=== PATIENT | female | born 1975 | race Caucasian/White ===

== ENCOUNTER 2018-09-18 01:46 | Emergency (ER) | payer SELFPAY ==
[~2018-09-18] VITALS: Ht 167.6 cm; Wt 99.8 kg
[2018-09-18 01:53] VITALS: BP 134/90
--- NOTE | 2018-09-18 01:53 | NUR ---
TO BED # 08 AMBULATORY
[2018-09-18 02:00] VITALS: BP 134/90
--- NOTE | 2018-09-18 02:00 | NUR ---
42 Y/O F BIB SELF WITH C/O L KNEE PAIN X3 DAYS AND VAGINAL DISCHARGE X2 MONTHS. 6/10 PAIN TO L KNEE, ACHING. L KNEE NON-TENDER. BLE EDEMATOUS. +CMS. PT C/O FOUL SMELLING VAGINAL YELLOW DISCHARGE X2 MONTHS. PER PT ONLY HAS ONE SEXUAL PARTNER AND DOES NOT USE PROTECTION. ERMD NOTIFIED. WILL CONTINUE TO MONITOR. Addendum: 09/18/18 at 0309 by [facility] 42 Y/O F BIB SELF WITH C/O L KNEE PAIN X3 DAYS AND VAGINAL DISCHARGE X2 MONTHS. 6/10 PAIN TO L KNEE, ACHING. L KNEE NON-TENDER. BLE EDEMATOUS. +CMS. PT C/O FOUL SMELLING VAGINAL YELLOW DISCHARGE AND ITCHING X2 MONTHS DENIES DYSURIA OR HEMATURIA. PER PT ONLY HAS ONE SEXUAL PARTNER AND DOES NOT USE PROTECTION. ERMD NOTIFIED. WILL CONTINUE TO MONITOR.
[2018-09-18] MEDS ORDERED: IBUPROFEN 800 MG TAB PO ONE (02:05)
[2018-09-18 02:28] LABS: APPEARANCE,URINE SL CLOUDY (CLEAR); BILIRUBIN,URINE NEGATIVE (NEGATIVE); BLOOD, URINE NEGATIVE (NEGATIVE); COLOR,URINE YELLOW (YELLOW); LEUKOCYTE ESTERASE ,URINE 1+ (NEGATIVE); NITRITE, URINE POSITIVE (NEGATIVE); UGLUCOSE NEGATIVE (NEGATIVE)
--- NOTE | 2018-09-18 02:35 | NUR ---
X-RAY AT BEDSIDE.
[2018-09-18 02:40] LABS: RBC,URINE 0-5 /HPF (0-5)
[2018-09-18] MEDS ORDERED: cefTRIAXone 1,000 MG in LIDOCAINE MPF 1% - 5 mL VIAL 2.1 ML IM ONE (02:45)
[2018-09-18] MEDS ORDERED: metroNIDAZOLE 250 MG TAB PO ONE (02:45)
--- NOTE | 2018-09-18 03:45 | NUR ---
Patient discharged with v/s stable. Written and verbal after care instructions given and explained. Patient alert, oriented and verbalized understanding of instructions. Wheel Chair Assisted by EMT. All questions addressed prior to discharge. ID band removed. Patient advised to follow up with PMD. Rx of Flagyl, macrobid,and ibuprofen given. Patient educated on indication of medication including possible reaction and side effects. Opportunity to ask questions provided and answered.
[2018-09-21 06:16] LABS: CHLAMYDIA TRACHOMATIS AMP DNA Negative (Negative)
--- NOTE | 2018-09-21 12:05 | NUR ---
as per appropriate treatment given---pt given rocephin 1gm im for gonorrhea , macrobid rx for uti but also positive e-coli urine-- pt was contacted and she stated due to lack of funds was not able to but macrobid---informed to return to apply for medical or other treatment---f/u with pmd within this week
== END 2018-09-18 03:45 | disposition home or self-care (01) ==
LOC: MED 01:46
DX: M25.562 Pain in left knee (principal); N39.0 Urinary tract infection, site not specified; N76.0 Acute vaginitis; Z60.2 Problems related to living alone; X50.1XXA Overexertion from prolonged static or awkward postures, initial encounter; Y93.01 Activity, walking, marching and hiking; Y92.89 Other specified places as the place of occurrence of the external cause; Y99.8 Other external cause status
CPT/HCPCS: 36415; 73562; 81001; 87086; 87186; 87210; 87491; 93971; 96372; 99284; J0696; J2001; Q0092; 81002

== ENCOUNTER 2020-02-09 20:03 | Inpatient (IN) | payer SELFPAY ==
[~2020-02-09] VITALS: Ht 167.6 cm; Wt 89.8 kg
[2020-02-09 20:40] VITALS: BP 122/55
--- NOTE | 2020-02-09 20:43 | NUR ---
TO LOBBY A/W BED WITH CRUTCHES
--- NOTE | 2020-02-09 22:05 | NUR ---
44 Y/O FEMALE PRESENTED TO ED C/O "SPIDER BITE" INFECTION ON LEFT LEG X 1 DAY. OBSERVED REDNESS AND SWELLING ON LEFT LEG. PT STATES SHE HAS NOT BEEN TAKING ANY MEDICATION AT THIS TIME. PT SENSITIVE TO TOUCH ON LEFT EXTREMITY. PT DENIES FEVER, CHILLS AND BODY ACHES, N/V/D. PT A/O X 4. CAP REFIL <3 SEC. RR EVEN AND UNLABORED. PT RESTING IN BED, LOCKED AND IN LOWEST POSITION ,HOB ELEVATED, SIDE RAIL X1. ERMD MADE AWARE OF PT STATUS. PMH: DENIES NKA
--- NOTE | 2020-02-09 22:10 | NUR ---
PT TAKEN TO BED #12 VIA W/C
--- NOTE | 2020-02-09 22:20 | NUR ---
ULTRASOUND AT BEDSIDE.
--- NOTE | 2020-02-09 22:21 | NUR ---
LAB AT BEDSIDE.
--- NOTE | 2020-02-09 22:22 | NUR ---
PER DIEGO, SAP BI DEVELOPER UNABLE TO OBTAIN BLOOD LABS AT THIS TIME DUE TO ULTRASOUND AT BEDSIDE.
[2020-02-09 22:45] LABS: BASOPHILS # (AUTO) 0.1 K/uL (0.00-0.22); BASOPHILS % (AUTO) 0.3 % (0.0-2.0); EOSINOPHILS % (AUTO) 0.2 % (0.0-4.0); HEMATOCRIT 37.8 % (36-48); HEMOGLOBIN 12.3 g/dL (12.0-16.0); LYMPHOCYTES # (AUTO) 1.9 K/uL (2.5-16.5); LYMPHOCYTES % (AUTO) 9.9 % (20.5-51.1); MEAN CORPUSCULAR HEMOGLOBIN 28 pg (27-31); MEAN CORPUSCULAR HGB CONC 33 g/dL (33-37); MEAN CORPUSCULAR VOLUME 86.9 fL (80-94); MONOCYTES % (AUTO) 10.5 % (1.7-9.3); NEUTROPHILS # (AUTO) 15.1 K/uL (1.8-7.7); NEUTROPHILS % (AUTO) 79.1 % (42.2-75.2); PLATELET COUNT (AUTO) 242 K/uL (140-450); RED BLOOD CELL COUNT(AUTO) 4.34 MIL/uL (4.20-5.40); RED CELL DISTRIBUTION WIDTH 14.4 % (11.6-13.7)
[2020-02-09 22:58] LABS: PROTHROMBIN TIME 30.2 secs (10.8-13.4)
[2020-02-09 23:03] LABS: ALBUMIN 2.7 g/dL (3.4-5.0); ANION GAP 35.3 (8-16); CARBON DIOXIDE 22.3 mmol/L (21-32); CREATININE 0.7 mg/dL (0.6-1.3); POTASSIUM 3.6 mmol/L (3.5-5.1); TOTAL BILIRUBIN 0.7 mg/dL (0.0-1.0)
[2020-02-09] MEDS ORDERED: NACL 0.9% 1,000 ML IV ONE (23:30)
[2020-02-09] MEDS ORDERED: VANCOMYCIN 1,000 MG in DEXTROSE 5% 250 ML IV ONE (23:30)
--- NOTE | 2020-02-09 23:32 | NUR ---
radiology at bedside.
[2020-02-09] MEDS ORDERED: KETOROLAC 30 MG/ML VIAL IVP ONE (23:35)
[2020-02-09] MEDS ORDERED: VANCOMYCIN 1,000 MG VIAL ONE (23:39)
[2020-02-10] MEDS ORDERED: CLINDAMYCIN 900 MG in DEXTROSE 5% 100 ML IV ONE ×2
--- NOTE | 2020-02-10 | NUR ---
PO CHALLENGED ADMINISTERED - PT TOLERATED WATER WELL AT THIS TIME. TRACYD MADE AWARE.
--- NOTE | 2020-02-10 00:40 | NUR ---
PT TAKEN TO RESTROOM VIA W/C AT THIS TIME.
--- NOTE | 2020-02-10 01:10 | NUR ---
ABHI COLLECTED AND WALKED TO LAB.
[2020-02-10] MEDS ORDERED: CLINDAMYCIN 900 MG/6 ML VIAL IV ONE (02:03)
--- NOTE | 2020-02-10 02:24 | NUR ---
PT SLEEPING IN BED, LOCKED AND IN LOWEST POSITION ,HOB ELEVATED, SIDE RAIL X2 FOR PT SAFETY. AUDIBLE SNORING HEARD AT THIS TIME. VISIBLE RISE AND FALL OF CHEST. RR EVEN AND UNLABORED. VSS.
--- NOTE | 2020-02-10 04:00 | NUR ---
PT SLEEPING IN BED, LOCKED AND IN LOWEST POSITION ,HOB ELEVATED, SIDE RAIL X2 FOR PT SAFETY. RR EVEN AND UNLABORED , VISIBLE RISE AND FALL OF CHEST. VSS. NO ACUTE DISTRESS NOTED.
--- NOTE | 2020-02-10 04:48 | NUR ---
PT STARTED YELLING THAT SHE IS READY TO GO HOME AND DOES NOT WANT TO BE HERE ANYMORE. PT ENCOURAGED THAT SHE SHOULD STAY AT THIS TIME.
--- NOTE | 2020-02-10 05:00 | NUR ---
PT STATES SHE DOESN'T WANT TO BE HERE ANYMORE AND THAT SHE HAS NO PROBLEM RIGHT NOT. Pt was educated on her infection and encourage to stay. Pt states she does not care and does not want to stay in the hospital at all. Admitting Dr. Stearns was made aware of pt requesting to leave at this time. Per Dr. Stearns discharge pt since he has not seen her at this time. Per PT Patient does not wish to proceed with medical care recommended by Dr. Stearns . Patient given information related to possible complications, up to and including , which could occur as a result of leaving hospital at this time. Patient verbalizes understanding of risks involved leaving against medical advice. Patient has signed AMA form.
--- NOTE | 2020-02-10 05:01 | NUR ---
IV removed, catheter intact and site benign. Applied folded 4x4 gauze and tape to stop bleeding.
[2020-02-10 05:05] VITALS: BP 121/67
--- NOTE | 2020-02-10 05:05 | NUR ---
PT EDUCATED AGAIN ON CONDITION AND ENCOURAGED TO STAY AT THIS TIME. PT STATES SHE DOES NOT WANT TO BE HERE ANYMORE . PT VOLUNTARILY SIGNED AMA FORM AT THIS TIME.
--- NOTE | 2020-02-10 11:14 | NUR ---
SOCIAL WORK NOTE: SW ATTEMPTED TO COMPLETE ASSESSMENT WITH PATIENT. PATIENT LEFT AMA.
== END 2020-02-10 05:00 | disposition left against medical advice (07) | DRG 871 ==
LOC: MED 20:03 → MMU 02-10 00:14
PROVIDERS: ADMIT Family Medicine; ATTEND Family Medicine
DX: A41.9 Sepsis, unspecified organism (principal); E43 Unspecified severe protein-calorie malnutrition; L03.116 Cellulitis of left lower limb; E87.0 Hyperosmolality and hypernatremia; Z20.828 Contact with and (suspected) exposure to other viral communicable diseases; Z53.29 Procedure and treatment not carried out because of patient's decision for other reasons; W57.XXXA Bitten or stung by nonvenomous insect and other nonvenomous arthropods, initial encounter; Y93.89 Activity, other specified; Y92.89 Other specified places as the place of occurrence of the external cause; Y99.8 Other external cause status; Z68.32 Body mass index [BMI] 32.0-32.9, adult
CPT/HCPCS: 36415; 73590; 73630; 80053; 85025; 85610; 93005; 93971; 96365; 96366; 96367; 96375; 99285; J1885; J3370; J3490

== ENCOUNTER 2021-08-27 23:07 | Emergency (ER) | payer SELFPAY ==
[~2021-08-27] VITALS: Ht 160 cm; Wt 75.3 kg
[2021-08-27 23:17] VITALS: BP 142/91
[2021-08-28 00:03] LABS: BASOPHILS % (AUTO) 0.3 % (0.0-2.0); EOSINOPHILS # (AUTO) 0.1 K/uL (0-0.4); EOSINOPHILS % (AUTO) 1.2 % (0.0-4.0); HEMATOCRIT 29.3 % (36-48); HEMOGLOBIN 9.8 g/dL (12.0-16.0); LYMPHOCYTES # (AUTO) 2.3 K/uL (2.5-16.5); LYMPHOCYTES % (AUTO) 23.8 % (20.5-51.1); MEAN CORPUSCULAR HEMOGLOBIN 27 pg (27-31); MEAN CORPUSCULAR HGB CONC 33 g/dL (33-37); MEAN CORPUSCULAR VOLUME 79.7 fL (80-94); MONOCYTES # (AUTO) 0.9 K/uL (0.8-1.0); MONOCYTES % (AUTO) 9.5 % (1.7-9.3); NEUTROPHILS # (AUTO) 6.4 K/uL (1.8-7.7); NEUTROPHILS % (AUTO) 65.2 % (42.2-75.2); PLATELET COUNT (AUTO) 556 K/uL (140-450); RED BLOOD CELL COUNT(AUTO) 3.68 MIL/uL (4.20-5.40); RED CELL DISTRIBUTION WIDTH 16.1 % (11.6-13.7); WHITE BLOOD COUNT (AUTO) 9.8 K/uL (4.8-10.8)
[2021-08-28 00:26] LABS: ALBUMIN 2.5 g/dL (3.4-5.0); CARBON DIOXIDE 28.1 mmol/L (21-32); POTASSIUM 3.1 mmol/L (3.5-5.1); TOTAL BILIRUBIN 0.9 mg/dL (0.0-1.0)
[2021-08-28 00:44] LABS: APPEARANCE,URINE CLEAR (CLEAR); BILIRUBIN,URINE NEGATIVE (NEGATIVE); BLOOD, URINE NEGATIVE (NEGATIVE); COLOR,URINE YELLOW (YELLOW); LEUKOCYTE ESTERASE ,URINE NEGATIVE (NEGATIVE); NITRITE, URINE NEGATIVE (NEGATIVE); UGLUCOSE NEGATIVE (NEGATIVE)
[2021-08-28 01:23] VITALS: BP 142/91
== END 2021-08-28 01:24 | disposition home or self-care (01) ==
LOC: MED 23:07
DX: N93.9 Abnormal uterine and vaginal bleeding, unspecified (principal); R41.0 Disorientation, unspecified
CPT/HCPCS: 36415; 76856; 80053; 81003; 85025; 85610; 85730; 86900; 86901; 99284; Q0092

== ENCOUNTER 2022-12-25 22:30 | Emergency (ER) | payer SELFPAY ==
[~2022-12-25] VITALS: Ht 162.6 cm; Wt 108.0 kg
[2022-12-25 23:37] VITALS: BP 137/71; PULSE 95; RESP 18; TEMP 98; O2SAT 97
[2022-12-26] MEDS ORDERED: LIDOCAINE/EPI MPF 1%1:200000 30 ML VIAL INJ ONE (00:55)
[2022-12-26] MEDS ORDERED: ceFAZolin 1,000 MG VIAL IM ONE (01:15)
[2022-12-26 01:40] VITALS: O2SAT 97
[2022-12-26] MEDS ORDERED: CEPH-588 PO (01:42)
== END 2022-12-26 01:45 | disposition home or self-care (01) ==
LOC: MED 22:30
DX: N64.4 Mastodynia (principal); Z53.21 Procedure and treatment not carried out due to patient leaving prior to being seen by health care provider
CPT/HCPCS: 96372; 99281; J0690; J2001

== ENCOUNTER 2023-11-13 14:00 | Emergency (ER) | payer SELFPAY ==
[~2023-11-13] VITALS: Ht 162.6 cm; Wt 97.1 kg
[~2023-11-13 14:00] MED LIST: CEPH-588 PO
[2023-11-13 14:11] VITALS: BP 138/85; PULSE 95; RESP 18; TEMP 98; O2SAT 95
[2023-11-13] MEDS: cephALEXin 500 MG CAP PO ONE (14:58)
[2023-11-13] MEDS: IBUPROFEN 600 MG TAB PO ONE (14:59)
[2023-11-13] MEDS: SULFAMETH/TRIMETH DS 800/160MG 1 TAB PO ONE (15:00)
[2023-11-13] MEDS ORDERED: CEPH-588 PO (15:53)
[2023-11-13] MEDS ORDERED: IBUP-1842 PO (15:53)
[2023-11-13] MEDS ORDERED: SULF-59 PO (15:53)
[2023-11-13 16:06] VITALS: BP 138/85; PULSE 95; RESP 18; TEMP 98; O2SAT 95
== END 2023-11-13 16:05 | disposition home or self-care (01) ==
LOC: MED 14:00
DX: L03.116 Cellulitis of left lower limb (principal); Z79.1 Long term (current) use of non-steroidal anti-inflammatories (NSAID); Z79.899 Other long term (current) drug therapy
CPT/HCPCS: 73590; 99284